=== PATIENT | female | born 1970 | race Two or more races ===

== ENCOUNTER 2020-02-29 10:37 | Emergency (ER) | payer SELFPAY ==
[~2020-02-29] VITALS: Ht 154.9 cm; Wt 62.1 kg
[2020-02-29 11:30] VITALS: BP 132/91
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
[2020-02-29 13:03] VITALS: BP 120/80
--- NOTE | 2020-02-29 13:04 | NUR ---
discharged home with instruction to follow up with pmd
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
== END 2020-02-29 13:05 | disposition home or self-care (01) ==
LOC: EMR 12:30
DX: S00.33XA Contusion of nose, initial encounter (principal); J45.909 Unspecified asthma, uncomplicated; W50.0XXA Accidental hit or strike by another person, initial encounter; Y93.9 Activity, unspecified; Y92.9 Unspecified place or not applicable
CPT/HCPCS: 70160; 99283